=== PATIENT | female | born 1995 | race African-American/Black ===

== ENCOUNTER 2022-11-13 14:06 | Emergency (ER) | payer MEDICAID ==
[~2022-11-13] VITALS: Ht 167.6 cm; Wt 90.0 kg
[2022-11-13] MEDS ORDERED: ACETAMINOPHEN WITH CODEINE 120-12MG/5ML UDC PO ONE (16:15)
[2022-11-13 16:38] VITALS: BP 128/90
[2022-11-13] MEDS ORDERED: BENZ200C52 MT (17:46)
== END 2022-11-13 18:00 | disposition home or self-care (01) ==
LOC: ER 14:06
DX: R05.9 Cough, unspecified (principal)
CPT/HCPCS: 71045; 81025; 99283; Z7610

== ENCOUNTER 2023-06-02 05:54 | Emergency (ER) | payer MEDICAID, MEDICARE ==
[~2023-06-02] VITALS: Ht 167.6 cm; Wt 77.0 kg
[~2023-06-02 05:54] MED LIST: BENZ200C52 MT
[2023-06-02 05:57] VITALS: BP 92/73; PULSE 68; RESP 16; TEMP 98.5; O2SAT 97
[2023-06-02 10:17] LABS: BASOPHILS % 0.4 % (0.0-2.0); EOSINOPHILS % 2.5 % (0.0-5.0); HEMATOCRIT. 40.5 % (36.0-48.0); HEMOGLOBIN. 12.9 g/dL (12.0-16.0); LYMPHOCYTES % 36.9 % (20.0-50.0); MEAN CORPUSCULAR HEMOGLOBIN 25.9 pg (28.0-32.0); MEAN CORPUSCULAR HGB CONC 31.8 g/dL (31.0-37.0); MEAN CORPUSCULAR VOLUME 81.3 fL (81.0-99.0); MEAN PLATELET VOLUME 8.6 fl (7.4-10.4); MONOCYTES % 5.3 % (2.0-8.0); NEUTROPHILS % 54.9 % (40.0-76.0); PLATELET 368 x1000/uL (130-400); RED BLOOD CELL COUNT 4.98 mill/uL (4.2-5.4); WHITE BLOOD COUNT 7.5 x1000/uL (4.5-11.0)
[2023-06-02 10:36] LABS: ALANINE AMINOTRANSFERASE 14 IU/L (10-49); ALBUMIN 4.6 g/dL (3.2-4.8); ASPARTATE AMINOTRANSFERASE 17 IU/L (<34); BILIRUBIN TOTAL 0.5 mg/dL (0.1-1.0); CALCIUM 9.9 mg/dL (8.7-10.4); CARBON DIOXIDE 30 mEq/L (21-32); CHLORIDE 104 mEq/L (98-107); CREATININE 0.8 mg/dL (0.6-1.0); GLUCOSE 91 mg/dL (70-105); POTASSIUM 3.9 mEq/L (3.5-5.1); PROTEIN TOTAL 8.1 g/dL (6.0-8.3); SODIUM 139 mEq/L (136-145); UREA NITROGEN BLOOD 12 mg/dL (9-23)
[2023-06-02 10:44] LABS: TROPONIN I HIGH SENSITIVITY < 4 ng/L (3.0-34)
[2023-06-02] MEDS ORDERED: CEFTRIAXONE SODIUM 500 MG/VIAL IM ONE (10:45)
[2023-06-02] MEDS ORDERED: LIDOCAINE HCL 1% 20ML VIAL (Pyxis) INJ INFIL ONE (11:00)
[2023-06-02 11:59] LABS: CLARITY URINE CLOUDY (CLEAR); COLOR URINE DARK YELLOW (YELLOW); GLUCOSE URINE NEGATIVE (NEGATIVE); KETONES URINE 2+ (NEGATIVE); LEUKOCYTE ESTERASE URINE 2+ (NEGATIVE); NITRITE URINE NEGATIVE (NEGATIVE); OCCULT BLOOD URINE NEGATIVE (NEGATIVE); PH URINE 5.5 (4.5-8.0); PROTEIN URINE TRACE (NEGATIVE); SPECIFIC GRAVITY URINE 1.029 (1.005-1.030)
[2023-06-02 12:18] LABS: SQUAMOUS EPITHELIAL CELL URINE 3+ /lpf (RARE/1+); WBC URINE 25-50 /hpf (0-2)
[2023-06-02 12:19] LABS: BACTERIA URINE 2+; YEAST URINE NONE SEEN
[2023-06-02] MEDS ORDERED: NITR-87 MT (13:01)
[2023-06-02] MEDS ORDERED: DOXY100C5 MT (13:01)
[2023-06-02] MEDS ORDERED: PRED10TA23 MT (13:02)
[2023-06-05 04:08] LABS: CHLAMYDIA TRACHOMATIS NAA Negative (Negative); NEISSERIA GONORRHOEAE NAA Negative (Negative)
== END 2023-06-02 13:19 | disposition home or self-care (01) ==
LOC: ER 05:54
DX: R07.89 Other chest pain (principal); N39.0 Urinary tract infection, site not specified; Z11.3 Encounter for screening for infections with a predominantly sexual mode of transmission
CPT/HCPCS: 99285; 71045; 86592; 87491; 87591; 80053; 81003; 81025; 85025; 87086; 87186; 84484; 87077; 36415; 93005; 96372; J0696; J3490